=== PATIENT | male | born 1985 | race Caucasian/White ===

== ENCOUNTER 2017-01-28 10:04 | Emergency (ER) | payer SELFPAY ==
[~2017-01-28] VITALS: Ht 182.9 cm; Wt 79.5 kg
[2017-01-28 10:12] VITALS: BP 145/95; PULSE 68; RESP 16; O2SAT 99
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
[2017-01-28 10:39] VITALS: BP 113/56; PULSE 170; RESP 22; O2SAT 98
[2017-01-28] MEDS ORDERED: 0.9% Sodium Chloride 1,000 ML IV ONE (10:46)
[2017-01-28] MEDS ORDERED: Ondansetron 2 mg/mL 2 mL Inj ONE (10:48)
[2017-01-28] MEDS ORDERED: Ondansetron 2 mg/mL 2 mL Inj IVPUSH ONE (10:50)
[2017-01-28 10:52] LABS: BASOPHILS % (AUTO) 0.1 % (0-3); EOSINOPHILS % (AUTO) 1.1 % (0-5); MONOCYTES % (AUTO) 6.3 % (4-12); Mean Corpuscular Hemoglobin 31.7 pg (27.0-35.0); Mean Corpuscular Volume 89.3 fL (81-100); Platelet Count 216 bil/L (150-400)
[2017-01-28 10:58] VITALS: BP 97/69; PULSE 166; RESP 21; O2SAT 100
[2017-01-28 11:22] LABS: TROPONIN T 0.01 ug/L (0.0-0.011)
[2017-01-28 11:33] LABS: Magnesium 1.5 mg/dL (1.6-2.6)
[2017-01-28 12:30] VITALS: BP 110/63; PULSE 98; RESP 17; O2SAT 99
[2017-01-28] MEDS ORDERED: FLEC150T PO (14:15)
[2017-01-28 14:22] VITALS: BP 115/64; PULSE 96; RESP 18; O2SAT 100
== END 2017-01-28 14:16 | disposition home or self-care (01) ==
LOC: SED 10:04
DX: I48.0 Paroxysmal atrial fibrillation (principal); F17.200 Nicotine dependence, unspecified, uncomplicated; Z87.828 Personal history of other (healed) physical injury and trauma
CPT/HCPCS: 36415; 80053; 83735; 84484; 85025; 93005; 96361; 96374; 99285; J2405; J7030